=== PATIENT | female | born 1990 | race Two or more races ===

== ENCOUNTER 2018-02-04 06:19 | Emergency (ER) | payer OTHER ==
[~2018-02-04] VITALS: Ht 160 cm; Wt 55.3 kg
[2018-02-04] MEDS ORDERED: PRENATAL + DHA1 EAC1 (06:34)
== END 2018-02-04 19:50 | disposition home or self-care (01) ==
LOC: ER 06:19
DX: O46.8X2 Other antepartum hemorrhage, second trimester (principal); Z34.02 Encounter for supervision of normal first pregnancy, second trimester

== ENCOUNTER 2018-06-20 15:00 | Inpatient (IN) | payer OTHER ==
[~2018-06-20] VITALS: Ht 160 cm; Wt 65.3 kg
[~2018-06-20 15:00] MED LIST: PRENATAL + DHA1 EAC1
== END 2018-06-28 13:52 | disposition home or self-care (01) | DRG 788 ==
LOC: LDR 06-25 05:51 → O/R 06-25 22:15 → OB/GYN 06-26
PROVIDERS: ADMIT Obstetrics & Gynecology
PROC: 10907ZC Drainage of Amniotic Fluid, Therapeutic from Products of Conception, Via Natural or Artificial Opening (ICD-10-PCS; 2018-06-25)
PROC: 3E033VJ Introduction of Other Hormone into Peripheral Vein, Percutaneous Approach (ICD-10-PCS; 2018-06-25)
PROC: 4A1HXCZ Monitoring of Products of Conception, Cardiac Rate, External Approach (ICD-10-PCS; 2018-06-25)
PROC: 10D00Z1 Extraction of Products of Conception, Low, Open Approach (ICD-10-PCS; principal; 2018-06-25 20:00)
DX: O61.0 Failed medical induction of labor (principal); Z3A.40 40 weeks gestation of pregnancy; Z37.0 Single live birth